=== PATIENT | male | born 1970 | race Caucasian/White ===

== ENCOUNTER 2018-10-21 19:05 | Emergency (ER) | payer MEDICAID ==
[~2018-10-21] VITALS: Ht 188 cm; Wt 83.9 kg
[2018-10-21 19:59] VITALS: BP 104/70
== END 2018-10-21 23:40 | disposition left against medical advice (07) ==
LOC: ER 19:05
DX: M54.9 Dorsalgia, unspecified (principal); Z53.21 Procedure and treatment not carried out due to patient leaving prior to being seen by health care provider
CPT/HCPCS: 72131

== ENCOUNTER 2019-01-11 11:48 | Emergency (ER) | payer MEDICAID ==
[~2019-01-11] VITALS: Ht 190.5 cm; Wt 78.9 kg
[2019-01-11 14:57] VITALS: BP 105/71
== END 2019-01-11 15:49 | disposition left against medical advice (07) ==
LOC: ER 11:48
DX: S61.451A Open bite of right hand, initial encounter (principal); Z53.21 Procedure and treatment not carried out due to patient leaving prior to being seen by health care provider; W54.0XXA Bitten by dog, initial encounter; Y93.89 Activity, other specified; Y92.89 Other specified places as the place of occurrence of the external cause; Y99.8 Other external cause status